=== PATIENT | female | born 1975 | race Asian ===

== ENCOUNTER → 2018-01-07 | Outpatient (CLI) | payer BC ==
[~2018-01-07] MED LIST: IOPAMIDOL (ISOVUE 370) 100 ML BTL IV ONE
== END ==
LOC: FIMAGING 12:45
PROVIDERS: ATTEND Obstetrics & Gynecology Gynecology
DX: Z31.41 Encounter for fertility testing (principal); N85.4 Malposition of uterus
CPT/HCPCS: Q9967